=== PATIENT | female | born 1980 | race Caucasian/White ===

== ENCOUNTER 2018-01-01 14:00 | Emergency (ER) | payer MEDICAID ==
[2018-01-01 15:22] LABS: AMPHETAMINE QUAL UR POSITIVE (See below)
[2018-01-01 17:42] VITALS: BP 122/88
== END 2018-01-01 17:42 | disposition home or self-care (01) ==
LOC: ED 14:00 → EDBD 14:00 → ED 17:42
PROVIDERS: Emergency Medicine
DX: F41.9 Anxiety disorder, unspecified (principal); F32.9 Major depressive disorder, single episode, unspecified; G47.00 Insomnia, unspecified; F43.10 Post-traumatic stress disorder, unspecified